=== PATIENT | female | born 1960 | race Two or more races ===

== ENCOUNTER 2018-05-06 16:26 | Emergency (ER) | payer OTHER ==
[~2018-05-06] VITALS: Ht 165.1 cm; Wt 70.3 kg
[2018-05-06 16:26] VITALS: BP 148/71
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
== END 2018-05-06 17:29 | disposition home or self-care (01) ==
LOC: ER 16:28
DX: Z77.21 Contact with and (suspected) exposure to potentially hazardous body fluids (principal); K76.0 Fatty (change of) liver, not elsewhere classified; I10 Essential (primary) hypertension; Z59.0 Homelessness
CPT/HCPCS: 36415; 86803; 87806; A4606; Z7610